=== PATIENT | female | born 2000 | race Two or more races ===

== ENCOUNTER 2021-05-11 18:16 | Emergency (ER) | payer SELFPAY ==
[~2021-05-11] VITALS: Ht 165.1 cm; Wt 77.1 kg
[2021-05-11 18:20] VITALS: BP 117/76
== END 2021-05-11 20:28 | disposition home or self-care (01) ==
LOC: ER 18:16
DX: S70.12XA Contusion of left thigh, initial encounter (principal); V86.59XA Driver of other special all-terrain or other off-road motor vehicle injured in nontraffic accident, initial encounter; Y93.89 Activity, other specified; Y92.89 Other specified places as the place of occurrence of the external cause; Y99.8 Other external cause status